=== PATIENT | female | born 1990 | race Caucasian/White ===

== ENCOUNTER 2017-12-31 17:32 | Inpatient (IN) | payer MEDICAID ==
[2017-12-31] MEDS ORDERED: Acetaminophen 325 MG Tab PO PRN (18:51)
[2017-12-31] MEDS ORDERED: Sodium Chloride 0.9% 10 ML Syringe FLUSH PRN (18:51)
[2017-12-31] MEDS ORDERED: Ondansetron 4 MG Tab.DIS PO PRN (18:51)
[2017-12-31] MEDS ORDERED: fentaNYL 100 MCG/2 ML SDV IVPUSH PRN (18:51)
--- NOTE | 2017-12-31 19:03 | PCM.LDHP ---
L&D History of Present Illness - General Date of Service: 12/31/17 (labor) Admit Problem/Dx: Patient Status Order with Admit Dx/Problem 12/31/17 18:51 Patient Status [ADT] Routine Admission Diagnosis/Problem Admission Diagnosis/Problem Active labor Source of Information: Patient History Limitations: Reports: No Limitations - History of Present Illness Introduction:: This 27 yr old who is 39 2/7 weeks who presents in latent labor with ruptured membranes. Membranes ruptured at home about 1630 and the fluid was greenish yellow. Contractions are 3-4 minutes apart and becoming stronger. Labs: ABO B pos HIV neg GBS Neg Rubella Immune Timing/Duration: Reports: minutes: (3) Location, : Reports: Abdomen, Lower back Quality: Reports: Pressure Severity: Moderate Improves with: Reports: None Worsens with: Reports: None - Related Data Allergies/Adverse Reactions: Allergies Allergy/AdvReac Type Severity Reaction Status Date / Time No Known Allergies Allergy Verified 11/03/14 20:31 Home Medications: Home Meds Magnesium 250 mg PO DAILY 10/07/15 [History] Omeprazole 20 mg PO DAILY 10/07/15 [History] Prenat Vit Comb.10/Iron/Fa/Dha [Vitafol-OB + DHA] 1 each PO DAILY 10/07/15 [ History] Past Medical History - Past Health History Medical/Surgical History: Denies Medical/Surgical History [employer] History: Reports: : 3 Para: 2 LMP (Approximate): (LENNY 01/05/18) Musculoskeletal History: Reports: Arthritis Other Musculoskeletal History: in knees - Infectious Disease History Infectious Disease History: Reports: Chicken Pox Social & Family History - Family History Cardiac: Reports: CAD Other Cardiac Family History: paternal grandfather : Reports: Renal Disease/Insufficiency Other Family History: grandfather - Tobacco Use Smoking Status *Q: Never Smoker Second Hand Smoke Exposure: No - Caffeine Use Caffeine Use: Reports: Soda - Alcohol Use Days Per Week of Alcohol Use: 0 - Recreational Drug Use Recreational Drug Use: No H&P Review of Systems - Review of Systems: Review Of Systems: See Below General: Reports: No Symptoms HEENT: Reports: No Symptoms Pulmonary: Reports: No Symptoms Cardiovascular: Reports: No Symptoms Gastrointestinal: Reports: Other (heartburn) Genitourinary: Reports: No Symptoms Musculoskeletal: Reports: No Symptoms Skin: Reports: No Symptoms Psychiatric: Reports: No Symptoms Neurological: Reports: No Symptoms Hematologic/Lymphatic: Reports: No Symptoms Immunologic: Reports: No Symptoms L&D Exam - Exam Exam: See Below - Vital Signs Vital Signs: Last Vital Signs Temp 98.1 F 12/31/17 18:23 Pulse 90 12/31/17 18:23 Resp 16 12/31/17 18:23 BP 132/75 12/31/17 18:23 Pulse Ox 96 12/31/17 18:23 Weight: 218 lb - OB Specific Contraction Duration (sec): 50-80 Contraction Frequency (min): 2-3 Contraction Intensity: Moderate Movement: Active Heart Tones: Present Heart Tones per Min: 130 Heart Rate (FHR) Variability: Minimal (0-5 bpm) Presentation: Vertex Estimated Weight: 6-7 pounds - Everett Score Everett Score Cervix Position: Midposition Everett Score Consistency: Soft [place] Score Effacement: 51-70% Everett Score Dilation: 3-4 cm Everett Score 's Station: -1 ,0 Everett Score Total: 9 - Exam General: Alert, Oriented HEENT: PERRLA, Mucosa Moist & [place], Pupils Equal Neck: Supple, Trachea Midline Lungs: Clear to Auscultation, Normal Respiratory Effort Cardiovascular: Regular Rate, Regular Rhythm GI/Abdominal Exam: Normal Bowel Sounds, Soft, Non-Tender Genitourinary: Cervical dilitation, Enlarged uterus Extremities: Normal Inspection, Normal Range of Motion, Non-Tender, Normal Capillary Refill Skin: Warm, Dry, Intact Neurological: Cranial Nerves Intact, Reflexes Equal Bilateral Psychiatric: Alert, Normal Affect, Normal Mood - Patient Data Lab Results Last 24 hrs: Laboratory Results - last 24 hr 12/31/17 12/31/17 12/31/17 Range/Units 18:08 18:08 18:22 WBC 11.9 H (4.5-11.0) K/uL RBC 4.26 (3.30-5.50) M/uL Hgb 11.8 L (12.0-15.0) g/dL Hct 35.8 L (36.0-48.0) % MCV 84 (80-98) fL MCH 28 (27-31) pg MCHC 33 (32-36) % Plt Count 262 (150-400) K/uL Urine Color Yellow Urine Appearance Clear Urine pH 6.5 (4.5-8.0) Ur Specific [place] 1.010 (1.008-1.030) Urine Protein Negative (NEGATIVE) mg/dL Urine Glucose (UA) Normal (NEGATIVE) mg/dL Urine Ketones Negative (NEGATIVE) mg/dL Urine Occult Blood Negative (NEGATIVE) Urine Nitrite Negative (NEGATIVE) Urine Bilirubin Negative (NEGATIVE) Urine Urobilinogen Normal (NORMAL) mg/dL Ur Leukocyte Esterase Negative (NEGATIVE) Urine RBC Not seen (0-5) Urine WBC 0-5 (0-5) Ur Epithelial Cells Few Amorphous Sediment Not seen Urine Bacteria Not seen Urine Mucus Not seen Membrane Rupture Positive H (NEGATIVE) Urine Opiates Screen (NEGATIVE) Ur Oxycodone Screen (NEGATIVE) Urine Methadone Screen (NEGATIVE) Ur Propoxyphene Screen (NEGATIVE) Ur Barbiturates Screen (NEGATIVE) Ur Tricyclics Screen (NEGATIVE) Ur Phencyclidine Scrn (NEGATIVE) Ur Amphetamine Screen (NEGATIVE) U Methamphetamines Scrn (NEGATIVE) Urine MDMA Screen (NEGATIVE) U Benzodiazepines Scrn (NEGATIVE) U Cocaine Metab Screen (NEGATIVE) U Marijuana (THC) Screen (NEGATIVE) 12/31/17 Range/Units 18:22 WBC (4.5-11.0) K/uL RBC (3.30-5.50) M/uL Hgb (12.0-15.0) g/dL Hct (36.0-48.0) % MCV (80-98) fL MCH (27-31) pg MCHC (32-36) % Plt Count (150-400) K/uL Urine Color Urine Appearance Urine pH (4.5-8.0) Ur Specific [place] (1.008-1.030) Urine Protein (NEGATIVE) mg/dL Urine Glucose (UA) (NEGATIVE) mg/dL Urine Ketones (NEGATIVE) mg/dL Urine Occult Blood (NEGATIVE) Urine Nitrite (NEGATIVE) Urine Bilirubin (NEGATIVE) Urine Urobilinogen (NORMAL) mg/dL Ur Leukocyte Esterase (NEGATIVE) Urine RBC (0-5) Urine WBC (0-5) Ur Epithelial Cells Amorphous Sediment Urine Bacteria Urine Mucus Membrane Rupture (NEGATIVE) Urine Opiates Screen Negative (NEGATIVE) Ur Oxycodone Screen Negative (NEGATIVE) Urine Methadone Screen Negative (NEGATIVE) Ur Propoxyphene Screen Negative (NEGATIVE) Ur Barbiturates Screen Negative (NEGATIVE) Ur Tricyclics Screen Negative (NEGATIVE) Ur Phencyclidine Scrn Negative (NEGATIVE) Ur Amphetamine Screen Negative (NEGATIVE) U Methamphetamines Scrn Negative (NEGATIVE) Urine MDMA Screen Negative (NEGATIVE) U Benzodiazepines Scrn Negative (NEGATIVE) U Cocaine Metab Screen Negative (NEGATIVE) U Marijuana (THC) Screen Negative (NEGATIVE) Result Diagrams: 12/31/17 18:22 - Problem List (1) Meconium in amniotic fluid SNOMED Code(s): 2639636 ICD Code: P96.83 - MECONIUM STAINING Status: Acute Current Visit: Yes (2) SNOMED Code(s): 72662930 ICD Code: Z34.90 - ENCNTR FOR SUPRVSN OF NORMAL , UNSP, UNSP TRIMESTER Status: Acute Current Visit: Yes Qualifiers: Weeks of gestation: 39 weeks Qualified Code(s): Z3A.39 - 39 weeks gestation of (3) Labor established SNOMED Code(s): 05996638 ICD Code: XIC1412 - Status: Acute Current Visit: Yes Problem List Initiated/Reviewed/Updated: Yes Orders Last 24hrs: Active Orders 24 hr Category Date Time Status Patient Status [ADT] Routine ADT 12/31/17 18:51 Ordered Antiembolic Devices [RC] .Routine Care 12/31/17 18:54 Ordered Bedrest Bathroom Privileges [RC] ASDIRECTED Care 12/31/17 18:51 Ordered Communication Order [RC] ASDIRECTED Care 12/31/17 18:51 Ordered Heart Tones [RC] PER UNIT ROUTINE Care 12/31/17 18:51 Ordered May Shower [RC] ASDIRECTED Care 12/31/17 18:51 Ordered Notify Provider Vital Signs [RC] PRN Care 12/31/17 18:51 Ordered Notify Provider [RC] PRN Care 12/31/17 18:51 Ordered Up ad Shannan [RC] ASDIRECTED Care 12/31/17 18:51 Ordered VTE/DVT Education [RC] Click to Edit Care 12/31/17 18:54 Ordered Vital Signs [RC] PER UNIT ROUTINE Care 12/31/17 18:51 Ordered Regular Diet [DIET] Diet 01/01/18 Breakfast Ordered Acetaminophen [Tylenol] Med 12/31/17 18:51 Ordered 650 mg PO Q4H PRN Ondansetron [Zofran ODT] Med 12/31/17 18:51 Ordered 4 mg PO Q4H PRN Oxytocin/Normal Saline [Pitocin in NS 20 Units/1,000 ML Med 12/31/17 18:57 Ordered ] 20 unit in 1,000 ml IV ONETIME Sodium Chloride 0.9% [Saline Flush] Med 12/31/17 18:51 Ordered 10 ml FLUSH ASDIRECTED PRN fentaNYL [Sublimaze] Med 12/31/17 18:51 Ordered 100 mcg IVPUSH Q1H PRN DVT/VTE Prophylaxis Reflex [OM.PC] Routine Oth 12/31/17 18:51 Ordered Saline Lock Insert [OM.PC] Routine Oth 12/31/17 18:51 Ordered Resuscitation Status Routine Resus Stat 12/31/17 18:51 Ordered Medication Orders Acetaminophen (Tylenol) 650 mg PO Q4H PRN PRN Reason: Pain (Mild 1-3) and fever Fentanyl (Sublimaze) 100 mcg IVPUSH Q1H PRN PRN Reason: Pain (moderate 4-6) Oxytocin/Sodium Chloride (Pitocin In Ns 20 Units/1,000 Ml) 20 unit in 1,000 mls @ 999 mls/hr IV ONETIME ONE PRN Reason: Protocol Stop: 12/31/17 19:57 Ondansetron HCl (Zofran Odt) 4 mg PO Q4H PRN PRN Reason: Nausea/Vomiting Sodium Chloride (Saline Flush) 10 ml FLUSH ASDIRECTED PRN PRN Reason: Keep Vein Open Assessment/Plan Comment:: 12/31/17 SROM meconium, ruptured at home Latent labor HGB 11.8 PLT 262 39 2/7 weeks Plan support labor plan for vaginal delivery Be prepared for meconium
[2017-12-31] MEDS ORDERED: Lactated Ringers 1,000 ML IV SCH (19:19)
[2017-12-31] MEDS ORDERED: Lactated Ringers 1,000 ML IV ONE ×2 (21:43)
[2017-12-31] MEDS ORDERED: ePHEDrine 50 MG/ML SDV IVPUSH ONE (21:43)
--- NOTE | 2017-12-31 21:48 | PCM.PNLD ---
Labor Progress Note - VS & Meds Vital Signs: Last Vital Signs Temp 97.9 F 12/31/17 19:13 Pulse 90 12/31/17 18:23 Resp 16 12/31/17 18:23 BP 132/75 12/31/17 18:23 Pulse Ox 96 12/31/17 18:23 Active Medications: Current Medications Acetaminophen (Tylenol) 650 mg PO Q4H PRN PRN Reason: Pain (Mild 1-3) and fever Ephedrine Sulfate (Ephedrine Sulfate) 5 mg IVPUSH ONETIME ONE Stop: 12/31/17 21:44 Fentanyl (Sublimaze) 100 mcg IVPUSH Q1H PRN PRN Reason: Pain (moderate 4-6) Last Admin: 12/31/17 20:53 Dose: 100 mcg Lactated Ringer's (Ringers, Lactated) 1,000 mls @ 125 mls/hr IV ASDIRECTED CARLOS Last Admin: 12/31/17 19:30 Dose: 999 mls/hr Lactated Ringer's (Ringers, Lactated) 1,000 mls @ 999 mls/hr IV .BOLUS ONE Stop: 12/31/17 22:43 Lactated Ringer's (Ringers, Lactated) 1,000 mls @ 999 mls/hr IV .BOLUS ONE Stop: 12/31/17 22:43 Ondansetron HCl (Zofran Odt) 4 mg PO Q4H PRN PRN Reason: Nausea/Vomiting Sodium Chloride (Saline Flush) 10 ml FLUSH ASDIRECTED PRN PRN Reason: Keep Vein Open Discontinued Medications Oxytocin/Sodium Chloride (Pitocin In Ns 20 Units/1,000 Ml) 20 unit in 1,000 mls @ 999 mls/hr IV ONETIME ONE PRN Reason: Protocol Stop: 12/31/17 19:57 - Uterine Contractions Uterine Monitoring Mode: External [place] Contraction Frequency (min): 1.5-3 Contraction Duration (sec): 40-90 Contraction Intensity: Moderate Uterine Resting Tone: Soft - Monitoring Monitor Mode: External Ultrasound Heart Rate (FHR) Baseline: 130 Heart Rate (FHR) Variability: Minimal (0-5 bpm) Accelerations: Present, 15x15 Decelerations: Early Strip Review: Category I - Vaginal Exam Dilation (cm): 6 Effacement (Percent): 75 Station: 0 Cervical Position: Anterior Sterile Vaginal Exam Performed By: Samira Lopez Vaginal Exam Comment: cervix change, has terrible back labor - Labor Progress (Free Text) Labor Progress: requesting epidural Fluid bolus in and Anesthesia called plan for vaginal delivery
[2017-12-31] MEDS ORDERED: Lidocaine 1% 50 ML MDV ONE (22:13)
--- NOTE | 2017-12-31 22:46 | PCM.DEL ---
L & D Note - General Info Date of Service: 12/31/17 Mother's Due Date: 01/05/18 - Delivery Note Labor: Spontaneous Delivery Outcome: Livebirth Infant Delivery Method: Spontaneous Vaginal Delivery-Single Delivery Mode: Spontaneous Presentation: Left Occiput Anterior (CHRISSIE) Nuchal Cord: Present Anesthesia Type: None (Anesthesia called for to place epidural, but rapid progress to completion and precipitous delivery did not allow for epidural to be placed. ) Laceration: 1st Degree, Perineal Suture type: Vicryl Suture size: 3-0 Placenta: Intact, Spontaneous Cord: 3 Vessels Estimated Blood Loss: 100 (mL) Resuscitation Needed: No [place]: Stimulated, Warmed, [place] Used, Warmer Used Score 1 min: 7 (2 for color, 1 for tone) Score 5 min: 8 (2 for color) Score 10 min: 9 (1 for color) Second Stage Interventions: Reports: Encouragement Given, Pushing Effectively, Pushing Involuntarily, Pushing, Knee Chest Position Delivery Comments (Free Text/Narrative):: 27 yo G3 now P3 female at 39w2d presented after SROM of meconium-stained fluid that occured at home at approximately 16:30. Stages of labor: 1st from 8992-4275; 2nd from 7566-4754; 3rd from 2060-3531. Delivered healthy baby girl in [place] at 2206 via with nuchal cord times 1. Baby girl weighed 6lb 5oz and measured 19.2 inches. She had APGARs of 7, 8, and 9; with points off for color persistently and tone initially. Placenta expressed spontaneously intact with three vessel cord. 1st degree perineal laceration repaired with interrupted sutures. EBL: 100mL. - General Info Date of Service: 12/31/17 Admission Dx/Problem (Free Text): Spontaneous vaginal delivery Functional Status: Reports: Pain Controlled - Review of Systems General: Reports: No Symptoms HEENT: Reports: No Symptoms, Contact Lenses Pulmonary: Reports: No Symptoms Cardiovascular: Reports: No Symptoms Gastrointestinal: Reports: No Symptoms Genitourinary: Reports: No Symptoms Musculoskeletal: Reports: No Symptoms Skin: Reports: No Symptoms Neurological: Reports: No Symptoms Psychiatric: Reports: No Symptoms - Patient Data Vitals - Most Recent: Last Vital Signs Temp 97.9 F 12/31/17 19:13 Pulse 90 12/31/17 18:23 Resp 16 12/31/17 18:23 BP 132/75 12/31/17 18:23 Pulse Ox 96 12/31/17 18:23 Weight - Most Recent: 218 lb Lab Results Last 24 Hours: Laboratory Results - last 24 hr 12/31/17 12/31/17 12/31/17 Range/Units 18:08 18:08 18:22 WBC 11.9 H (4.5-11.0) K/uL RBC 4.26 (3.30-5.50) M/uL Hgb 11.8 L (12.0-15.0) g/dL Hct 35.8 L (36.0-48.0) % MCV 84 (80-98) fL MCH 28 (27-31) pg MCHC 33 (32-36) % Plt Count 262 (150-400) K/uL Urine Color Yellow Urine Appearance Clear Urine pH 6.5 (4.5-8.0) Ur Specific [place] 1.010 (1.008-1.030) Urine Protein Negative (NEGATIVE) mg/dL Urine Glucose (UA) Normal (NEGATIVE) mg/dL Urine Ketones Negative (NEGATIVE) mg/dL Urine Occult Blood Negative (NEGATIVE) Urine Nitrite Negative (NEGATIVE) Urine Bilirubin Negative (NEGATIVE) Urine Urobilinogen Normal (NORMAL) mg/dL Ur Leukocyte Esterase Negative (NEGATIVE) Urine RBC Not seen (0-5) Urine WBC 0-5 (0-5) Ur Epithelial Cells Few Amorphous Sediment Not seen Urine Bacteria Not seen Urine Mucus Not seen Membrane Rupture Positive H (NEGATIVE) Urine Opiates Screen (NEGATIVE) Ur Oxycodone Screen (NEGATIVE) Urine Methadone Screen (NEGATIVE) Ur Propoxyphene Screen (NEGATIVE) Ur Barbiturates Screen (NEGATIVE) Ur Tricyclics Screen (NEGATIVE) Ur Phencyclidine Scrn (NEGATIVE) Ur Amphetamine Screen (NEGATIVE) U Methamphetamines Scrn (NEGATIVE) Urine MDMA Screen (NEGATIVE) U Benzodiazepines Scrn (NEGATIVE) U Cocaine Metab Screen (NEGATIVE) U Marijuana (THC) Screen (NEGATIVE) 12/31/17 Range/Units 18:22 WBC (4.5-11.0) K/uL RBC (3.30-5.50) M/uL Hgb (12.0-15.0) g/dL Hct (36.0-48.0) % MCV (80-98) fL MCH (27-31) pg MCHC (32-36) % Plt Count (150-400) K/uL Urine Color Urine Appearance Urine pH (4.5-8.0) Ur Specific [place] (1.008-1.030) Urine Protein (NEGATIVE) mg/dL Urine Glucose (UA) (NEGATIVE) mg/dL Urine Ketones (NEGATIVE) mg/dL Urine Occult Blood (NEGATIVE) Urine Nitrite (NEGATIVE) Urine Bilirubin (NEGATIVE) Urine Urobilinogen (NORMAL) mg/dL Ur Leukocyte Esterase (NEGATIVE) Urine RBC (0-5) Urine WBC (0-5) Ur Epithelial Cells Amorphous Sediment Urine Bacteria Urine Mucus Membrane Rupture (NEGATIVE) Urine Opiates Screen Negative (NEGATIVE) Ur Oxycodone Screen Negative (NEGATIVE) Urine Methadone Screen Negative (NEGATIVE) Ur Propoxyphene Screen Negative (NEGATIVE) Ur Barbiturates Screen Negative (NEGATIVE) Ur Tricyclics Screen Negative (NEGATIVE) Ur Phencyclidine Scrn Negative (NEGATIVE) Ur Amphetamine Screen Negative (NEGATIVE) U Methamphetamines Scrn Negative (NEGATIVE) Urine MDMA Screen Negative (NEGATIVE) U Benzodiazepines Scrn Negative (NEGATIVE) U Cocaine Metab Screen Negative (NEGATIVE) U Marijuana (THC) Screen Negative (NEGATIVE) Med Orders - Current: Current Medications Acetaminophen (Tylenol) 650 mg PO Q4H PRN PRN Reason: Pain (Mild 1-3) and fever Fentanyl (Sublimaze) 100 mcg IVPUSH Q1H PRN PRN Reason: Pain (moderate 4-6) Last Admin: 12/31/17 20:53 Dose: 100 mcg Lactated Ringer's (Ringers, Lactated) 1,000 mls @ 125 mls/hr IV ASDIRECTED [facility] Last Admin: 12/31/17 19:30 Dose: 999 mls/hr Lactated Ringer's (Ringers, Lactated) 1,000 mls @ 999 mls/hr IV .BOLUS ONE Stop: 12/31/17 22:43 Lactated Ringer's (Ringers, Lactated) 1,000 mls @ 999 mls/hr IV .BOLUS ONE Stop: 12/31/17 22:43 Ondansetron HCl (Zofran Odt) 4 mg PO Q4H PRN PRN Reason: Nausea/Vomiting Sodium Chloride (Saline Flush) 10 ml FLUSH ASDIRECTED PRN PRN Reason: Keep Vein Open Discontinued Medications Ephedrine Sulfate (Ephedrine Sulfate) 5 mg IVPUSH ONETIME ONE Stop: 12/31/17 21:44 Oxytocin/Sodium Chloride (Pitocin In Ns 20 Units/1,000 Ml) 20 unit in 1,000 mls @ 999 mls/hr IV ONETIME ONE PRN Reason: Protocol Stop: 12/31/17 19:57 Oxytocin/Sodium Chloride (Pitocin In Ns 20 Units/1,000 Ml) Confirm Administered Dose 20 unit in 1,000 mls @ as directed .ROUTE .STK-MED ONE Stop: 12/31/17 22:06 Lidocaine HCl (Xylocaine 1%) Confirm Administered Dose 50 ml .ROUTE .STK-MED ONE Stop: 12/31/17 22:14 - Exam General: Alert, Oriented HEENT: Pupils Equal, EOMI, Mucous Membr. Moist/[place] Neck: Supple, Trachea Midline, No JVD Lungs: Normal Respiratory Effort Cardiovascular: Regular Rate (Female) Exam: Normal External Exam (with evidence of 1st degree perineal lac (repaired)) Back Exam: Normal Inspection Extremities: Other (bilateral non-pitting edema to mid-[place]er) Skin: Warm, Dry, Intact Neurological: No New Focal Deficit Psy/Mental Status: Alert, Normal Affect, Normal Mood - Problem List Review Problem List Initiated/Reviewed/Updated: Yes - Plan Plan:: 12/31/17 SROM meconium, ruptured at home Latent labor HGB 11.8 PLT 262 39 2/7 weeks Plan support labor plan for vaginal delivery Be prepared for meconium 12/31/17 27 yo G3 now P3 female delivered healthy baby girl in [place] at 2206 via with nuchal cord times 1. Stages of labor: 1st from 0315-9981; 2nd from 5367-9284; 3rd from 9822-9105. See delivery note for further details. Plan: SMA Tylenol and Ibuprofen Routine cares including regular vitals, monitoring of lochia, pain, and cramping Ice packs as needed Ambulate as able Support breast feeding Hemoglobin and hematocrit in AM. Continue baby aspirin daily for 6 weeks.
[2017-12-31] MEDS ORDERED: Acetaminophen/Codeine 300-30 MG Tab PO PRN (23:01)
[2017-12-31] MEDS ORDERED: Famotidine 20 MG Tab PO PRN (23:01)
[2017-12-31] MEDS ORDERED: Ibuprofen 200 MG Tab, 24 Tab Bulk Bottle PO PRN (23:04)
[2017-12-31] MEDS ORDERED: Acetaminophen 325 MG Tab, 50 Tab Bulk Bottle PO PRN ×2 (23:04→23:12)
--- NOTE | 2018-01-01 10:30 | PCM.PNPP ---
- General Info Date of Service: 01/01/18 (PPD 1) Admission Dx/Problem (Free Text): Spontaneous vaginal delivery Functional Status: Reports: Pain Controlled - Review of Systems General: Reports: No Symptoms HEENT: Reports: No Symptoms Pulmonary: Reports: No Symptoms Cardiovascular: Reports: No Symptoms Gastrointestinal: Reports: No Symptoms Genitourinary: Reports: No Symptoms Musculoskeletal: Reports: No Symptoms Skin: Reports: No Symptoms Neurological: Reports: No Symptoms Psychiatric: Reports: No Symptoms - General Info Date of Service: 01/01/18 - Patient Data Vital Signs - Most Recent: Last Vital Signs Temp 97.1 F 01/01/18 08:00 Pulse 71 01/01/18 05:00 Resp 18 01/01/18 08:00 BP 118/76 01/01/18 08:00 Pulse Ox 98 01/01/18 08:00 Weight - Most Recent: 218 lb Lab Results - Last 24 Hours: Laboratory Results - last 24 hr 12/31/17 12/31/17 12/31/17 Range/Units 18:08 18:08 18:22 WBC 11.9 H (4.5-11.0) K/uL RBC 4.26 (3.30-5.50) M/uL Hgb 11.8 L (12.0-15.0) g/dL Hct 35.8 L (36.0-48.0) % MCV 84 (80-98) fL MCH 28 (27-31) pg MCHC 33 (32-36) % Plt Count 262 (150-400) K/uL Neut % (Auto) (36-66) % Lymph % (Auto) (24-44) % [place] % (Auto) (2-6) % Eos % (Auto) (2-4) % Baso % (Auto) (0-1) % Urine Color Yellow Urine Appearance Clear Urine pH 6.5 (4.5-8.0) Ur Specific [place] 1.010 (1.008-1.030) Urine Protein Negative (NEGATIVE) mg/dL Urine Glucose (UA) Normal (NEGATIVE) mg/dL Urine Ketones Negative (NEGATIVE) mg/dL Urine Occult Blood Negative (NEGATIVE) Urine Nitrite Negative (NEGATIVE) Urine Bilirubin Negative (NEGATIVE) Urine Urobilinogen Normal (NORMAL) mg/dL Ur Leukocyte Esterase Negative (NEGATIVE) Urine RBC Not seen (0-5) Urine WBC 0-5 (0-5) Ur Epithelial Cells Few Amorphous Sediment Not seen Urine Bacteria Not seen Urine Mucus Not seen Membrane Rupture Positive H (NEGATIVE) Urine Opiates Screen (NEGATIVE) Ur Oxycodone Screen (NEGATIVE) Urine Methadone Screen (NEGATIVE) Ur Propoxyphene Screen (NEGATIVE) Ur Barbiturates Screen (NEGATIVE) Ur Tricyclics Screen (NEGATIVE) Ur Phencyclidine Scrn (NEGATIVE) Ur Amphetamine Screen (NEGATIVE) U Methamphetamines Scrn (NEGATIVE) Urine MDMA Screen (NEGATIVE) U Benzodiazepines Scrn (NEGATIVE) U Cocaine Metab Screen (NEGATIVE) U Marijuana (THC) Screen (NEGATIVE) 12/31/17 01/01/18 Range/Units 18:22 05:00 WBC 16.2 H (4.5-11.0) K/uL RBC 4.28 (3.30-5.50) M/uL Hgb 11.9 L (12.0-15.0) g/dL Hct 36.1 (36.0-48.0) % MCV 84 (80-98) fL MCH 28 (27-31) pg MCHC 33 (32-36) % Plt Count 218 (150-400) K/uL Neut % (Auto) 79 H (36-66) % Lymph % (Auto) 15 L (24-44) % [place] % (Auto) 6 (2-6) % Eos % (Auto) 0 L (2-4) % Baso % (Auto) 0 (0-1) % Urine Color Urine Appearance Urine pH (4.5-8.0) Ur Specific [place] (1.008-1.030) Urine Protein (NEGATIVE) mg/dL Urine Glucose (UA) (NEGATIVE) mg/dL Urine Ketones (NEGATIVE) mg/dL Urine Occult Blood (NEGATIVE) Urine Nitrite (NEGATIVE) Urine Bilirubin (NEGATIVE) Urine Urobilinogen (NORMAL) mg/dL Ur Leukocyte Esterase (NEGATIVE) Urine RBC (0-5) Urine WBC (0-5) Ur Epithelial Cells Amorphous Sediment Urine Bacteria Urine Mucus Membrane Rupture (NEGATIVE) Urine Opiates Screen Negative (NEGATIVE) Ur Oxycodone Screen Negative (NEGATIVE) Urine Methadone Screen Negative (NEGATIVE) Ur Propoxyphene Screen Negative (NEGATIVE) Ur Barbiturates Screen Negative (NEGATIVE) Ur Tricyclics Screen Negative (NEGATIVE) Ur Phencyclidine Scrn Negative (NEGATIVE) Ur Amphetamine Screen Negative (NEGATIVE) U Methamphetamines Scrn Negative (NEGATIVE) Urine MDMA Screen Negative (NEGATIVE) U Benzodiazepines Scrn Negative (NEGATIVE) U Cocaine Metab Screen Negative (NEGATIVE) U Marijuana (THC) Screen Negative (NEGATIVE) Med Orders - Current: Current Medications Acetaminophen (Tylenol Bulk Bottle) 325 - 650 mg PO Q4H PRN PRN Reason: Pain Last Admin: 01/01/18 00:01 Dose: 1 bottle Acetaminophen/Codeine Phosphate (Tylenol With Codeine No.3 300mg/30mg) 1 tab PO Q4H PRN PRN Reason: Pain (moderate 4-6) Famotidine (Pepcid) 20 mg PO BID PRN PRN Reason: Heartburn Fentanyl (Sublimaze) 100 mcg IVPUSH Q1H PRN PRN Reason: Pain (moderate 4-6) Last Admin: 12/31/17 20:53 Dose: 100 mcg Lactated Ringer's (Ringers, Lactated) 1,000 mls @ 125 mls/hr IV ASDIRECTED CARLOS Last Infusion: 12/31/17 20:00 Dose: 125 mls/hr Ibuprofen (Motrin Bulk Bottle) 600 mg PO Q6H PRN PRN Reason: Pain Last Admin: 01/01/18 00:00 Dose: 1 bottle Ondansetron HCl (Zofran Odt) 4 mg PO Q4H PRN PRN Reason: Nausea/Vomiting Sodium Chloride (Saline Flush) 10 ml FLUSH ASDIRECTED PRN PRN Reason: Keep Vein Open Discontinued Medications Acetaminophen (Tylenol) 650 mg PO Q4H PRN PRN Reason: Pain (Mild 1-3) and fever Stop: 01/01/18 00:08 Acetaminophen (Tylenol Bulk Bottle) 1 - 2 mg PO Q4H PRN PRN Reason: Pain Ephedrine Sulfate (Ephedrine Sulfate) 5 mg IVPUSH ONETIME ONE Stop: 12/31/17 21:44 Last Admin: 12/31/17 23:52 Dose: Not Given Oxytocin/Sodium Chloride (Pitocin In Ns 20 Units/1,000 Ml) 20 unit in 1,000 mls @ 999 mls/hr IV ONETIME ONE PRN Reason: Protocol Stop: 12/31/17 19:57 Last Titration: 12/31/17 22:40 Dose: 125 mls/hr, 125 mls/hr Lactated Ringer's (Ringers, Lactated) 1,000 mls @ 999 mls/hr IV .BOLUS ONE Stop: 12/31/17 22:43 Last Admin: 12/31/17 23:54 Dose: Not Given Lactated Ringer's (Ringers, Lactated) 1,000 mls @ 999 mls/hr IV .BOLUS ONE Stop: 12/31/17 22:43 Last Admin: 12/31/17 23:53 Dose: Not Given Oxytocin/Sodium Chloride (Pitocin In Ns 20 Units/1,000 Ml) Confirm Administered Dose 20 unit in 1,000 mls @ as directed .ROUTE .STK-MED ONE Stop: 12/31/17 22:06 Last Admin: 12/31/17 23:54 Dose: Not Given Lidocaine HCl (Xylocaine 1%) Confirm Administered Dose 50 ml .ROUTE .STK-MED ONE Stop: 12/31/17 22:14 Last Admin: 12/31/17 22:10 Dose: 50 ml - Infant Interaction Infant Disposition, : in Room with Family Infant Interaction: Holding Feeding: Breastfed Infant; Nursed Well Support Person: - Recovery Exam Fundal Tone: Firm Fundal Level: At Umbilicus Fundal Placement: Left Lochia Amount: Small Lochia Color: Rubra/Red Perineum Description: Intact, Minimal Bruising/Swelling Episiotomy/Laceration: Approximated Bladder Status: Voiding Urinary Elimination: Voided Other Urinary Elimination, : Will re-assess after void. - Exam General: Alert, Oriented HEENT: Pupils Equal Neck: Supple Lungs: Clear to Auscultation, Normal Respiratory Effort Cardiovascular: Regular Rate, Regular Rhythm GI/Abdominal Exam: Normal Bowel Sounds, Soft, Non-Tender, No Organomegaly, No Distention, No Abnormal Bruit, No Mass, Pelvis Stable Extremities: Normal Inspection, Normal Range of Motion, Non-Tender, No Pedal Edema, Normal Capillary Refill Skin: Warm, Dry, Intact Wound/Incisions: Healing Well Neurological: No New Focal Deficit Psy/Mental Status: Alert, Normal Affect, Normal Mood - Problem List & Annotations (1) Meconium in amniotic fluid SNOMED Code(s): 8077227 Code(s): P96.83 - MECONIUM STAINING Status: Acute Current Visit: Yes (2) SNOMED Code(s): 98698449 Code(s): Z34.90 - ENCNTR FOR SUPRVSN OF NORMAL , UNSP, UNSP TRIMESTER Status: Acute Current Visit: Yes Qualifiers: Weeks of gestation: 39 weeks Qualified Code(s): Z3A.39 - 39 weeks gestation of (3) Labor established SNOMED Code(s): 67396771 Code(s): FLB2704 - Status: Acute Current Visit: Yes - Problem List Review Problem List Initiated/Reviewed/Updated: Yes - My Orders Last 24 Hours: My Active Orders 12/31/17 18:51 Bedrest Bathroom Privileges [RC] ASDIRECTED Communication Order [RC] ASDIRECTED May Shower [RC] ASDIRECTED Notify Provider Vital Signs [RC] PRN Notify Provider [RC] PRN Up ad Shannan [RC] ASDIRECTED Vital Signs [RC] PER UNIT ROUTINE Ondansetron [Zofran ODT] 4 mg PO Q4H PRN Sodium Chloride 0.9% [Saline Flush] 10 ml FLUSH ASDIRECTED PRN fentaNYL [Sublimaze] 100 mcg IVPUSH Q1H PRN DVT/VTE Prophylaxis Reflex [OM.PC] Routine Saline Lock Insert [OM.PC] Routine Resuscitation Status Routine 12/31/17 18:54 VTE/DVT Education [RC] Click to Edit 12/31/17 19:19 Lactated Ringers [Ringers, Lactated] 1,000 ml IV ASDIRECTED 12/31/17 21:43 Epidural Catheter Management [OM.PC] Urgent 12/31/17 23:01 Patient Status [ADT] Routine Acetaminophen/Codeine [Tylenol with Codeine No.3 300MG/30MG] 1 tab PO Q4H PRN Famotidine [Pepcid] 20 mg PO BID PRN Assess Lochia [WOMSER] Per Unit Routine Assess Uterine Involution [WOMSER] Per Unit Routine 12/31/17 23:02 Ice Therapy [OM.PC] Per Unit Routine Perineal Care [OM.PC] Per Unit Routine Peripheral IV Discontinue [OM.PC] Routine Sitz Bath [OM.PC] Per Unit Routine 12/31/17 23:04 Ibuprofen [Motrin Bulk Bottle] 600 mg PO Q6H PRN 12/31/17 23:12 Acetaminophen [Tylenol Bulk Bottle] 325 - 650 mg PO Q4H PRN 01/01/18 Breakfast Regular Diet [DIET] - Assessment Assessment:: 01/01/18 27 yr old 39 2/7 week gestation with with meconium staining, mild cramping with Small first degree perineal tear with repair, no pain , no problems Mood happy voiding up and about HGB 11.9 this am - Plan Plan:: 12/31/17 SROM meconium, ruptured at home Latent labor HGB 11.8 PLT 262 39 2/7 weeks Plan support labor plan for vaginal delivery Be prepared for meconium 12/31/17 27 yo G3 now P3 female delivered healthy baby girl in [place] at 2206 via with nuchal cord times 1. Stages of labor: 1st from 3530-8295; 2nd from 5543-4551; 3rd from 2410-4183. See delivery note for further details. Plan: SMA Tylenol and Ibuprofen Routine cares including regular vitals, monitoring of lochia, pain, and cramping Ice packs as needed Ambulate as able Support breast feeding Hemoglobin and hematocrit in AM. Continue baby aspirin daily for 6 weeks. 01/01/18 Continue routine cares support home tomorrow
--- NOTE | 2018-01-02 08:02 | PCM.PNPP ---
- General Info Date of Service: 01/02/18 (PPD 2 D/C) Admission Dx/Problem (Free Text): Spontaneous vaginal delivery Functional Status: Reports: Pain Controlled - Review of Systems General: Reports: No Symptoms HEENT: Reports: No Symptoms Pulmonary: Reports: No Symptoms Cardiovascular: Reports: No Symptoms Gastrointestinal: Reports: No Symptoms Genitourinary: Reports: No Symptoms Musculoskeletal: Reports: No Symptoms Skin: Reports: No Symptoms Neurological: Reports: No Symptoms Psychiatric: Reports: No Symptoms - General Info Date of Service: 01/02/18 - Patient Data Vital Signs - Most Recent: Last Vital Signs Temp 97.7 F 01/02/18 02:20 Pulse 97 01/02/18 02:20 Resp 20 01/02/18 02:20 BP 120/62 01/02/18 02:20 Pulse Ox 99 01/02/18 02:20 Weight - Most Recent: 217 lb 15.995 oz I&O - Last 24 Hours: Intake & Output 01/01/18 01/02/18 01/02/18 22:59 06:59 14:59 Intake Total 1100 Balance 1100 Med Orders - Current: Current Medications Acetaminophen (Tylenol Bulk Bottle) 325 - 650 mg PO Q4H PRN PRN Reason: Pain Last Admin: 01/01/18 00:01 Dose: 1 bottle Acetaminophen/Codeine Phosphate (Tylenol With Codeine No.3 300mg/30mg) 1 tab PO Q4H PRN PRN Reason: Pain (moderate 4-6) Famotidine (Pepcid) 20 mg PO BID PRN PRN Reason: Heartburn Fentanyl (Sublimaze) 100 mcg IVPUSH Q1H PRN PRN Reason: Pain (moderate 4-6) Last Admin: 12/31/17 20:53 Dose: 100 mcg Lactated Ringer's (Ringers, Lactated) 1,000 mls @ 125 mls/hr IV ASDIRECTED CARLOS Last Infusion: 12/31/17 20:00 Dose: 125 mls/hr Ibuprofen (Motrin Bulk Bottle) 600 mg PO Q6H PRN PRN Reason: Pain Last Admin: 01/01/18 00:00 Dose: 1 bottle Ondansetron HCl (Zofran Odt) 4 mg PO Q4H PRN PRN Reason: Nausea/Vomiting Sodium Chloride (Saline Flush) 10 ml FLUSH ASDIRECTED PRN PRN Reason: Keep Vein Open Discontinued Medications Acetaminophen (Tylenol) 650 mg PO Q4H PRN PRN Reason: Pain (Mild 1-3) and fever Stop: 01/01/18 00:08 Acetaminophen (Tylenol Bulk Bottle) 1 - 2 mg PO Q4H PRN PRN Reason: Pain Ephedrine Sulfate (Ephedrine Sulfate) 5 mg IVPUSH ONETIME ONE Stop: 12/31/17 21:44 Last Admin: 12/31/17 23:52 Dose: Not Given Oxytocin/Sodium Chloride (Pitocin In Ns 20 Units/1,000 Ml) 20 unit in 1,000 mls @ 999 mls/hr IV ONETIME ONE PRN Reason: Protocol Stop: 12/31/17 19:57 Last Titration: 12/31/17 22:40 Dose: 125 mls/hr, 125 mls/hr Lactated Ringer's (Ringers, Lactated) 1,000 mls @ 999 mls/hr IV .BOLUS ONE Stop: 12/31/17 22:43 Last Admin: 12/31/17 23:54 Dose: Not Given Lactated Ringer's (Ringers, Lactated) 1,000 mls @ 999 mls/hr IV .BOLUS ONE Stop: 12/31/17 22:43 Last Admin: 12/31/17 23:53 Dose: Not Given Oxytocin/Sodium Chloride (Pitocin In Ns 20 Units/1,000 Ml) Confirm Administered Dose 20 unit in 1,000 mls @ as directed .ROUTE .STK-MED ONE Stop: 12/31/17 22:06 Last Admin: 12/31/17 23:54 Dose: Not Given Lidocaine HCl (Xylocaine 1%) Confirm Administered Dose 50 ml .ROUTE .STK-MED ONE Stop: 12/31/17 22:14 Last Admin: 12/31/17 22:10 Dose: 50 ml - Interaction Infant Disposition, : [place] in Room with Family Interaction: Holding Infant Feeding: Breastfed ; Nursed Well Support Person: - Recovery Exam Fundal Tone: Firm Fundal Level: At Umbilicus Fundal Placement: Midline Lochia Amount: Moderate Lochia Color: Rubra/Red Perineum Description: Intact, Minimal Bruising/Swelling Episiotomy/Laceration: Approximated Bladder Status: Voiding Urinary Elimination: Voided Other Urinary Elimination, : Will re-assess after void. - Exam General: Alert, Oriented HEENT: Pupils Equal Neck: Supple Lungs: Clear to Auscultation, Normal Respiratory Effort Cardiovascular: Regular Rate, Regular Rhythm GI/Abdominal Exam: Normal Bowel Sounds, Soft, Non-Tender, No Organomegaly, No Distention, No Abnormal Bruit, No Mass, Pelvis Stable Extremities: Normal Inspection, Normal Range of Motion, Non-Tender, No Pedal Edema, Normal Capillary Refill Skin: Warm, Dry, Intact Wound/Incisions: Healing Well Neurological: No New Focal Deficit Psy/Mental Status: Alert, Normal Affect, Normal Mood - Problem List & Annotations (1) Meconium in amniotic fluid SNOMED Code(s): 3039651 Code(s): P96.83 - MECONIUM STAINING Status: Acute Current Visit: Yes (2) SNOMED Code(s): 33388352 Code(s): Z34.90 - ENCNTR FOR SUPRVSN OF NORMAL , UNSP, UNSP TRIMESTER Status: Acute Current Visit: Yes Qualifiers: Weeks of gestation: 39 weeks Qualified Code(s): Z3A.39 - 39 weeks gestation of (3) Labor established SNOMED Code(s): 01903836 Code(s): DIP0429 - Status: Acute Current Visit: Yes - Problem List Review Problem List Initiated/Reviewed/Updated: Yes - My Orders Last 24 Hours: My Active Orders 01/01/18 Breakfast Regular Diet [DIET] - Assessment Assessment:: 01/01/18 27 yr old 39 2/7 week gestation with with meconium staining, mild cramping with Small first degree perineal tear with repair, no pain , no problems Mood happy voiding up and about HGB 11.9 this am 01/02/18 Doing well without problems Is crampy more so today Wants to go home - Plan Plan:: 12/31/17 SROM meconium, ruptured at home Latent labor HGB 11.8 PLT 262 39 2/7 weeks Plan support labor plan for vaginal delivery Be prepared for meconium 12/31/17 27 yo G3 now P3 female delivered healthy baby girl in [place] at 2206 via with nuchal cord times 1. Stages of labor: 1st from 4230-7957; 2nd from 4854-9102; 3rd from 7393-8388. See delivery note for further details. Plan: SMA Tylenol and Ibuprofen Routine cares including regular vitals, monitoring of lochia, pain, and cramping Ice packs as needed Ambulate as able Support breast feeding Hemoglobin and hematocrit in AM. Continue baby aspirin daily for 6 weeks. 01/01/18 Continue routine cares support home tomorrow 01/02/17 Home today See me in 6 weeks
[2018-01-02 15:04] VITALS: BP 126/74
== END 2018-01-02 18:00 | disposition home or self-care (01) | DRG 775 ==
LOC: JP.OBCHECK 17:32 → JP.OB 18:29 → OBSVTOIN 22:06 → JP.OB 22:06 → JP.MS 01-01 00:30
PROVIDERS: ADMIT Nurse Practitioner Family; ATTEND Nurse Practitioner Family
PROC: 10E0XZZ Delivery of Products of Conception, External Approach (ICD-10-PCS; principal; 2017-12-31)
PROC: 0HQ9XZZ Repair Perineum Skin, External Approach (ICD-10-PCS; 2017-12-31)
DX: O77.0 Labor and delivery complicated by meconium in amniotic fluid (principal); O69.81X0 Labor and delivery complicated by cord around neck, without compression, not applicable or unspecified; O62.3 Precipitate labor; O70.0 First degree perineal laceration during delivery; Z3A.39 39 weeks gestation of pregnancy; Z37.0 Single live birth
CPT/HCPCS: 36415; 59300; 59409; 80305; 81001; 84112; 85025; 85027; A9270-GY; J2590; J3010; J7120